=== PATIENT | female | born 1955 | race Caucasian/White ===

== ENCOUNTER → 2016-08-11 | Outpatient (CLI) | payer BC ==
[~2016-08-11] MED LIST: ALBU8.5H6 IH; ASPI-860 PO; BETA15CR4 TOP; LEVO100T7 PO; PRV20T PO
[2016-08-11 08:57] LABS: ALBUMIN 3.9 g/dL (3.4-5.0); ANION GAP 15.3 MEQ/L (3-15); CALCULATED IONIZED CALCIUM 4.3 mg/dL (3.8-4.6); TOTAL PROTEIN 7.1 g/dL (6.4-8.5)
[2016-08-11 08:58] LABS: BASOPHILS % (AUTO) 2 % (0-2); EOSINOPHILS # (AUTO) 0.2 10^3uL; EOSINOPHILS % (AUTO) 6 % (0-4); LYMPHOCYTES # (AUTO) 1.2 X10^3; MEAN CORPUSCULAR HEMOGLOBIN 30.6 PG (26.0-34.0); MEAN CORPUSCULAR VOLUME 93 FL (80-100); MEAN PLATELET VOLUME 12.1 FL (6.0-9.5); MONOCYTES # (AUTO) 0.4 X10^3; MONOCYTES % (AUTO) 11 % (3-11); NEUTROPHILS # (AUTO) 2.2 X10^3; NEUTROPHILS % (AUTO) 53 % (51-67); PLATELET COUNT 285 10^3uL (150-450); WHITE BLOOD COUNT 4.09 10^3uL (4.0-11.0)
== END ==
LOC: LAB 07:23
PROVIDERS: ATTEND Internal Medicine
DX: Z00.00 Encounter for general adult medical examination without abnormal findings (principal); E03.8 Other specified hypothyroidism; E78.4 Other hyperlipidemia; R60.0 Localized edema
CPT/HCPCS: 36415; 80053; 80061; 84443; 85025

== ENCOUNTER → 2016-08-13 | Outpatient (CLI) | payer BC ==
--- NOTE | 2016-08-13 11:38 | Diagnostic Imaging Report ---
INDICATION: Right knee pain after fall. AP, lateral, oblique and sunrise views of the right knee are obtained with comparison made study of 11/20/2009. FINDINGS: No acute fracture or malalignment is identified. There is no abnormal lytic or sclerotic focus. There is mild narrowing of the lateral patellofemoral joint space with mild marginal spurring. IMPRESSION: No acute abnormality is identified. There is mild degenerative change of the lateral patellofemoral joint. Dictated by: Dictated on workstation # [id number]
== END ==
LOC: RAD 10:06
PROVIDERS: ATTEND Internal Medicine
DX: M25.561 Pain in right knee (principal)
CPT/HCPCS: 73564